=== PATIENT | male | born 1985 | race Caucasian/White ===

== ENCOUNTER 2018-09-01 18:43 | Emergency (ER) | payer OTHER ==
[~2018-09-01] VITALS: Ht 177.8 cm; Wt 81.6 kg
[2018-09-01] MEDS ORDERED: NKM (18:52)
--- NOTE | 2018-09-01 18:55 | NUR ---
ED Nurse Note: patient walked into ED c/o swollen lump around his neck, he reports that he has had body aches for 2 days and that he noticed the lump this morning. Otis CORTEZ by the bedside.
[2018-09-01 19:08] VITALS: BP 115/73
[2018-09-01] MEDS ORDERED: Isovue-300 100ml vial INJ PRN (19:15)
--- NOTE | 2018-09-01 19:20 | Emergency Room Report ---
History of Present Illness General Chief Complaint: General Complaint Source: Patient Present Illness HPI 33-year-old male patient presents the ER complaining of lump on the left side of his neck times 1 day. Reports he noticed a lump earlier today. Reports painful. Reports flulike symptoms during this time. Reports sore throat cough without sputum. Denies hemoptysis. Denies fever, chest pain or shortness of breath. Reports not received flu vaccine this year. Denies history of thyroid problems. Reports history of drug use, states has been clean for 6 months. Denies other aggravating or relieving factors. Allergies: Coded Allergies: No Known Allergies (Unverified , 09/01/18) Patient History Past Medical History: see triage record Reviewed Nursing Documentation: PMH: Agreed; PSxH: Agreed Nursing Documentation-PMH Past Medical History: No Stated History Review of Systems All Other Systems: negative except mentioned in HPI Physical Exam Vital Signs Date Time Temp Pulse Resp B/P (MAP) Pulse Ox O2 Delivery O2 Flow Rate FiO2 09/01/18 18:50 98.6 90 16 115/73 100 Room Air Sp02 EP Interpretation: reviewed, normal General Appearance: well appearing, no apparent distress, alert, GCS 15, non- toxic Head: normocephalic, atraumatic Eyes: bilateral eye normal inspection, bilateral eye PERRL ENT: hearing grossly normal, normal pharynx, no angioedema, normal voice, uvula midline, moist mucus membranes Neck: full range of motion, other - tender mass on the left side of neck near the thyroid, not freely movable, no surrounding erythema or edema, no fluctuance Respiratory: lungs clear, normal breath sounds, no rhonchi, no respiratory distress, no accessory muscle use, no wheezing, speaking full sentences Cardiovascular #1: regular rate, rhythm, no edema Genitourinary: no CVA tenderness Musculoskeletal: back normal, digits/nails normal, gait/station normal, normal range of motion, non-tender Neurologic: alert, oriented x3, responsive, motor strength/tone normal, sensory intact Psychiatric: mood/affect normal Skin: no rash Medical Decision Making PA Attestation Dr. Polanco is my supervising Physician whom patient management has been discussed with. Diagnostic Impression: Primary Impression: Thyroid nodule Additional Impression: Bulla of lung ER Course Pt. presents to the ED c/o lump of the left side of neck. Ddx considered but are not limited to thyroid mass, lymphadenopathy, abscess, influenza. Vital signs: are WNL, pt. is afebrile ER COURSE: CBC unremarkable, mild elevation WBCs without left shift, likely due to pain symptoms. CMP shows kidney function WNL, LFTs not elevated TSH WNL Influenza negative CT soft tissue neck large complex partially calcified left thyroid nodule measuring 3.3 cm. Follow-up with specialist for ultrasound and fine-needle aspiration. Discuss results with the patient. Provided patient with copy of results. Instructed patient to followup with PCP and discuss results of report with patient, discuss need for further treatment and referral. Provided patient with CD of CT results. Discussed patient care with Dr. Polanco who was evaluated patient, will discharge patient home with Keflex to cover for possible infection. Take Tylenol for pain symptoms. DISCHARGE: At this time pt is stable for d/c to home. Patient is resting comfortably, in no acute distress, nontoxic appearing, talking without difficulty. Patient to take medications as instructed Will provide with patient care instructions and any necessary prescriptions. Care plan and follow-up instructions provided. Patient instructed to follow-up with primary care provider in 3 - 5 days. Patient questions asked and answered. Patient reports understanding and agreement to treatment plan. ER precautions given. Patient instructed to return to ER immediately for any new or worsening of symptoms including but not limited to increasing SOB, persistent fever, chest pain, intractable vomiting. - Please note that this Emergency Department Report was dictated using Daiocleat maker technology software, occasionally this can lead to erroneous entry secondary to interpretation by the dictation equipment. Labs Test 09/01/18 19:25 White Blood Count 12.0 K/UL (4.8-10.8) Red Blood Count 5.18 M/UL (4.70-6.10) Hemoglobin 13.8 G/DL (14.2-18.0) Hematocrit 42.3 % (42.0-52.0) Mean Corpuscular Volume 82 FL (80-99) Mean Corpuscular Hemoglobin 26.7 PG (27.0-31.0) Mean Corpuscular Hemoglobin Concent 32.7 G/DL (32.0-36.0) Red Cell Distribution Width 11.3 % (11.6-14.8) Platelet Count 279 K/UL (150-450) Mean Platelet Volume 6.0 FL (6.5-10.1) Neutrophils (%) (Auto) 66.8 % (45.0-75.0) Lymphocytes (%) (Auto) 20.2 % (20.0-45.0) Monocytes (%) (Auto) 11.8 % (1.0-10.0) Eosinophils (%) (Auto) 0.5 % (0.0-3.0) Basophils (%) (Auto) 0.7 % (0.0-2.0) Sodium Level 139 MMOL/L (136-145) Potassium Level 3.8 MMOL/L (3.5-5.1) Chloride Level 101 MMOL/L (98-107) Carbon Dioxide Level 26 MMOL/L (21-32) Anion Gap 12 mmol/L (5-15) Blood Urea Nitrogen 12 mg/dL (7-18) Creatinine 1.0 MG/DL (0.55-1.30) Estimat Glomerular Filtration Rate > 60 mL/min (>60) Glucose Level 97 MG/DL (74-106) Calcium Level 8.9 MG/DL (8.5-10.1) Total Bilirubin 0.4 MG/DL (0.2-1.0) Aspartate Amino Transf (AST/SGOT) 21 U/L (15-37) Alanine Aminotransferase (ALT/SGPT) 45 U/L (12-78) Alkaline Phosphatase 85 U/L (46-116) Total Protein 8.5 G/DL (6.4-8.2) Albumin 3.9 G/DL (3.4-5.0) Globulin 4.6 g/dL Albumin/Globulin Ratio 0.8 (1.0-2.7) Thyroid Stimulating Hormone (TSH) 0.424 uiU/mL (0.358-3.740) CT/MRI/US Diagnostic Results CT/MRI/US Diagnostic Results : Imaging Test Ordered: CT soft tissue neck with contrast Impression Small bulla in the right lung apex. Large complex and partially calcified left thyroid lobe nodule measuring up to 3.3 cm. Further characterization with ultrasound and likely fine-needle aspiration recommended. No significantly enlarged cervical lymph nodes. Last Vital Signs Date Time Temp Pulse Resp B/P (MAP) Pulse Ox O2 Delivery O2 Flow Rate FiO2 09/01/18 19:08 98.6 90 16 115/73 100 Room Air Disposition: HOME, SELF-CARE Condition: Stable Scripts Acetaminophen* (TYLENOL EXTRA STRENGTH*) 500 Mg Tablet 500 MG ORAL Q8H PRN for Prn Headache/Temp > 101, #30 TAB 0 Refills Prov: Chris Demarco 09/01/18 Cephalexin* (KEFLEX*) 500 Mg Capsule 500 MG ORAL EVERY 12 HOURS, #14 CAP 0 Refills Prov: Chris Demarco 09/01/18 Patient Instructions: Thyroid Biopsy, Thyroid Nodule Additional Instructions: Followup with primary care provider in 2-3 days. Discuss referral to ENT/ thyroid specialist. Recommend thyroid ultrasound and fine-needle aspiration. Discussed CT results with primary care provider. Call insurance to find out who primary care provider is if needed. Take medications as directed. Patient questions asked and answered. ER precautions given, patient instructed to return to ER immediately for any new or worsening of symptoms. Chris Demarco Sep 01, 2018 19:20
--- NOTE | 2018-09-01 19:24 | NUR ---
HAND-OFF: Report given to Davian Odom RN.
[2018-09-01 20:12] LABS: BASOPHILS % (AUTO) 0.7 % (0.0-2.0); EOSINOPHILS % (AUTO) 0.5 % (0.0-3.0); HEMATOCRIT 42.3 % (42.0-52.0); HEMOGLOBIN 13.8 G/DL (14.2-18.0); LYMPHOCYTES % (AUTO) 20.2 % (20.0-45.0); MEAN CORPUSCULAR VOLUME 82 FL (80-99); MONOCYTES % (AUTO) 11.8 % (1.0-10.0); NEUTROPHILS % (AUTO) 66.8 % (45.0-75.0); PLATELET COUNT 279 K/UL (150-450); RED BLOOD COUNT 5.18 M/UL (4.70-6.10); RED CELL DISTRIBUTION WIDTH 11.3 % (11.6-14.8)
[2018-09-01 20:23] LABS: ANION GAP 12 mmol/L (5-15); BLOOD UREA NITROGEN 12 mg/dL (7-18); CALCIUM 8.9 MG/DL (8.5-10.1); CARBON DIOXIDE 26 MMOL/L (21-32); CHLORIDE 101 MMOL/L (98-107); POTASSIUM 3.8 MMOL/L (3.5-5.1); SODIUM 139 MMOL/L (136-145)
--- NOTE | 2018-09-01 20:30 | NUR ---
ED Nurse Note: pt went to ct with tech
[2018-09-01 20:35] LABS: ALANINE AMINOTRANSFERASE 45 U/L (12-78); ALBUMIN 3.9 G/DL (3.4-5.0); ALBUMIN/GLOBULIN RATIO 0.8 (1.0-2.7); ALKALINE PHOSPHATASE 85 U/L (46-116); ASPARTATE AMINO TRANSFERASE 21 U/L (15-37); BILIRUBIN,TOTAL 0.4 MG/DL (0.2-1.0)
[2018-09-01] MEDS ORDERED: TYLENOL EXTRA500 MG ORAL (21:20)
[2018-09-01] MEDS ORDERED: CEPHALEXIN500 MG ORAL (21:20)
[2018-09-01 21:52] VITALS: BP 115/73
--- NOTE | 2018-09-01 21:52 | NUR ---
ED Nurse Note: Patient is being discharged from ED alert and oriented x4, ambulatory with a steady gait, VSS. Patient acknowledged the need to follow up with a PMD, Patient was advised to return if symptoms worsen. prescription in hand, ID band removed. pt left the ed with all the belongings.
--- NOTE | 2018-09-02 08:56 | Diagnostic Imaging Report ---
Indication: Pain, lump on the left side of the neck Technique: IV administration nonionic contrast. Spiral acquisitions obtained through the neck. Multiplanar reconstructions were generated. Total dose length product 630.5 mGycm. CTDIvol(s) 19.21 mGy. Dose reduction achieved using automated exposure control Comparison: none Findings: There is a large low-attenuation mass involving the left thyroid lobe. This measures 3.5 cm AP by 2.6 cm transverse by 4 cm craniocaudad. Some rim calcifications are seen inferiorly surrounding either a satellite nodule or lobulation of the primary nodule. Since blood vessels are seen running through the mass. Some calcifications are also seen at the upper pole of the lesion. The right thyroid lobe and isthmus are unremarkable. No other evidence of cervical mass or adenopathy demonstrated. The upper aerodigestive tract is unremarkable. The parapharyngeal spaces are clear, symmetric. The visualized sinuses are clear. The included lung apices demonstrate a small subpleural bleb or bulla on the right. Unremarkable upper mediastinum. Impression: 3.5 x 2.6 x 4 cm left thyroid lobe mass. Appearance is suspicious for necrotic neoplasm. Abscess or complicated thyroid cyst also possible. Further evaluation with ultrasound recommended. This agrees with the preliminary interpretation provided overnight by [facility]. The CT scanner at [facility] is accredited by the [employer] and the scans are performed using protocols designed to limit radiation exposure to as low as reasonably achievable to attain images of sufficient resolution adequate for diagnostic evaluation.
== END 2018-09-01 21:52 | disposition home or self-care (01) ==
LOC: EMR 19:00
DX: E04.1 Nontoxic single thyroid nodule (principal); J43.9 Emphysema, unspecified
CPT/HCPCS: 36415; 70491; 80053; 84443; 85025; 86710; 99284; Q9967

== ENCOUNTER 2020-07-16 15:05 | Emergency (ER) | payer OTHER ==
[~2020-07-16] VITALS: Ht 177.8 cm; Wt 72.6 kg
[~2020-07-16 15:05] MED LIST: CEPHALEXIN500 MG ORAL; NKM; TYLENOL EXTRA500 MG ORAL
[2020-07-16] MEDS ORDERED: Tetanus/Diptheria/Pertussis IM ONE (15:30)
[2020-07-16 15:41] VITALS: BP 128/67
[2020-07-16] MEDS ORDERED: Cephalexin 500mg cap ORAL ONE (15:45)
[2020-07-16] MEDS ORDERED: Bactrim-DS 1 tab ORAL ONE (15:45)
--- NOTE | 2020-07-16 15:49 | Emergency Room Report ---
History of Present Illness General Chief Complaint: Skin Rash/Abscess Source: Patient Present Illness HPI 35-year-old male presents to the emergency department complaining of 7 out of 10 severity pain, swelling, erythema and tenderness to the bilateral hands x2 days. Patient reports status post IV drug use. Patient reports he was injecting heroin 2 days ago. Patient reports history of hep C. He denies fevers or chills. He states he is not sure when his last tetanus vaccine was. He reports he is right-hand dominant. He denies trauma or fall. No other aggravating or relieving factors at this time. Allergies: Coded Allergies: No Known Allergies (Unverified , 09/01/18) COVID-19 Screening Contact w/high risk pt: No Experienced COVID-19 symptoms?: No COVID-19 Testing performed EMPLOYMENT DIRECTOR: No Patient History Past Medical History: see triage record Past Surgical History: none Pertinent Family History: none Reviewed Nursing Documentation: PMH: Agreed; PSxH: Agreed Review of Systems All Other Systems: negative except mentioned in HPI Physical Exam Vital Signs Date Time Temp Pulse Resp B/P (MAP) Pulse Ox O2 Delivery O2 Flow Rate FiO2 07/16/20 15:14 97.2 86 16 128/67 (87) 99 Room Air Sp02 EP Interpretation: reviewed, normal General Appearance: no apparent distress, alert, GCS 15, non-toxic Head: normocephalic, atraumatic Eyes: bilateral eye normal inspection, bilateral eye PERRL ENT: hearing grossly normal, normal voice Neck: full range of motion Respiratory: chest non-tender, lungs clear, normal breath sounds, speaking full sentences Cardiovascular #1: regular rate, rhythm, no edema Cardiovascular #2: 2+ radial (R), 2+ radial (L) Musculoskeletal: normal range of motion, gait/station normal, non-tender Neurologic: alert, motor strength/tone normal, oriented x3, sensory intact, responsive, speech normal Psychiatric: judgement/insight normal Skin: other - Diffuse erythema, warmth and swelling to the soft tissue of the dorsum of the hands bilaterally. No localized palpable fluctuance or area of induration. No blisters or vesicles. NVI. Medical Decision Making PA Attestation Dr. Bishop is my supervising Physician whom patient management has been discussed with. Diagnostic Impression: Primary Impression: Cellulitis Qualified Codes: L03.119 - Cellulitis of unspecified part of limb ER Course 35-year-old male presents to the emergency department complaining of 7 out of 10 severity pain, swelling, erythema and tenderness to the bilateral hands x2 days. Patient reports status post IV drug use. Patient reports he was injecting heroin 2 days ago. Patient reports history of hep C. He denies fevers or chills. He states he is not sure when his last tetanus vaccine was. He reports he is right-hand dominant. He denies trauma or fall. No other aggravating or relieving factors at this time. Ddx considered but are not limited to cellulitis, Necrotizing fasciitis, allergic reaction, burn, dermatitis, fracture, d/L, gout, abscess, phlebitis. Vital signs: are WNL, pt. is afebrile H&PE are most consistent with soft tissue cellulitis to the bilateral hands most likely secondary to IV drug use. No areas that clinically would require incisio n and drainage. Patient is nontoxic in appearance in no acute distress. ORDERS: none required at this time, the diagnosis is clinical ED INTERVENTIONS: - Tdap -Keflex PO -Bactrim DS PO - Motrin PO DISCHARGE: At this time pt. is stable for d/c to home. Will provide printed patient care instructions, and any necessary prescriptions. Care plan and follow up instructions have been discussed with the patient prior to discharge. Last Vital Signs Date Time Temp Pulse Resp B/P (MAP) Pulse Ox O2 Delivery O2 Flow Rate FiO2 07/16/20 15:41 97.2 16 128/67 99 Room Air 07/16/20 15:14 86 Status: improved Disposition: HOME, SELF-CARE Condition: Stable Referrals: [facility] Patient Instructions: Cellulitis Additional Instructions: Take medications as directed. Follow up with a Primary Care Provider in 3-5 days, even if your symptoms have resolved. --Please review list of primary care clinics, if you do not already have a primary care provider Return sooner to ED if new symptoms occur, or current symptoms become worse. - Please note that this Emergency Department Report was dictated using [employer] Energytrib[employer] judge technology software, occasionally this can lead to erroneous entry secondary to interpretation by the dictation equipment. Lynda Tinajero Jul 16, 2020 15:49
[2020-07-16] MEDS ORDERED: IBUPROFEN600 M1 ORAL (16:25)
[2020-07-16] MEDS ORDERED: BACTRIM DS TAB1 EAC1 ORAL (16:25)
[2020-07-16] MEDS ORDERED: CEPHALEXIN500 MG ORAL (16:25)
== END 2020-07-16 16:32 | disposition home or self-care (01) ==
LOC: EMR 15:30
DX: L03.114 Cellulitis of left upper limb (principal); L03.113 Cellulitis of right upper limb; Z23 Encounter for immunization
CPT/HCPCS: 90471; 90715; Z7502; 99282

== ENCOUNTER 2020-07-20 10:58 | Emergency (ER) | payer OTHER ==
[~2020-07-20] VITALS: Ht 177.8 cm; Wt 72.6 kg
[~2020-07-20 10:58] MED LIST changes: +BACTRIM DS TAB1 EAC1 ORAL; +IBUPROFEN600 M1 ORAL
--- NOTE | 2020-07-20 11:06 | NUR ---
ED Nurse Note: pt ambulated to ed c/o right hand cellulitis worsening x 1-2 days after being seen at [place] on the 16 of july. right hand appears swollen, red, and unkept. Pt reports he is still taking the antibiotics prescribed at his last visit. "my hand feels like its going to pop everytime I move it"
[2020-07-20 11:08] VITALS: BP 120/78
[2020-07-20] MEDS ORDERED: Lidocaine 1% Plain 30 ml INJ ONE ×2 (11:12→11:15)
--- NOTE | 2020-07-20 11:14 | NUR ---
ED Nurse Note: ERMD at bedside
[2020-07-20] MEDS ORDERED: BACITRACIN15 GM TOPIC (11:21)
--- NOTE | 2020-07-20 11:28 | Emergency Room Report ---
History of Present Illness General Chief Complaint: Skin Rash/Abscess Source: Patient Present Illness HPI Disclaimer: Please note that this report is being documented using DRAGON technology. This can lead to erroneous entry secondary to incorrect interpretation by the dictating instrument. HPI: 35-year-old [id number] male presents for evaluation of skin abscess. Patient states he injects heroin into his hands arms and neck. He was treated at this emergency department for hand cellulitis several days ago and started on Keflex and Bactrim. He has been compliant with medication. He states the spot over the dorsum of the right hand has been increasingly sore and swollen. He noted a pustule head on it developed this morning. No drainage, no bleeding. He denies recent injection into that area and cannot recall an instance in which the needle broke off. Tetanus is up-to-date. Full range of motion in the hand. Denies numbness or tingling. Denies fever or chills. Recently completed detox program but relapsed. PMH: IV drug abuse, cellulitis, abscess PSH: Reviewed Allergies: Reviewed Social Hx: IV drug abuse Allergies: Coded Allergies: No Known Allergies (Unverified , 09/01/18) COVID-19 Screening Contact w/high risk pt: No Experienced COVID-19 symptoms?: No COVID-19 Testing performed STITCHER STANDARD MACHINE: No Nursing Documentation-PMH Past Medical History: No History, Except For Review of Systems All Other Systems: negative except mentioned in HPI Physical Exam Vital Signs Date Time Temp Pulse Resp B/P (MAP) Pulse Ox O2 Delivery O2 Flow Rate FiO2 07/20/20 11:01 98.2 85 15 120/78 (92) 95 Room Air General: Awake and alert, no acute distress HEENT: NC/AT. EOMI. Resp: Normal work of breathing Skin: There is a 2 x 2 edematous erythematous and tender fluctuant region over the dorsum of the fifth metacarpal just proximal to the PIPJ. No bleeding or spontaneous drainage. MSK: Normal tone and bulk. Moving all extremities. No obvious deformity. Able to flex and extend all digits. Neuro: Awake and alert. Mentating appropriately Procedures Incision and Drainage Incision and Drainage : Consent: Verbal Site: Right hand Blade Size: 11 I & D Procedure: betadine prep, sterile drapes applied, sterile dressing applied Wound Location: upper extremity Wound's Depth, Shape: superficial, linear Wound Length (cm): 1 Wound Explored: Purulent material expressed Irrigated w/ Saline (ccs): 100 Anesthesia: 1% Lidocaine Volume Anesthetic (ccs): 5 Splint Applied?: Yes Patient Tolerated: Well Complications: None Medical Decision Making Diagnostic Impression: Primary Impression: Abscess ER Course 35-year-old male presents with abscess to the right hand. Bedside ultrasound performed by me shows a fluid collection just below the skin surface. No obvious spread to the deep tissue. Patient has full range of motion in the hands and is neurologically intact. Incision and drainage performed with removal of purulent material. See separate procedure section of this note for full details. Tolerated well. Bacitracin and sterile bandage applied. He will continue his antibiotics that he was started on a few days ago. Tetanus was updated on last visit. Otherwise well-appearing stable for outpatient follow-up. Instructed to return with new or worsening symptoms. Last Vital Signs Date Time Temp Pulse Resp B/P (MAP) Pulse Ox O2 Delivery O2 Flow Rate FiO2 07/20/20 11:08 98.2 85 15 120/78 95 Room Air Disposition: HOME, SELF-CARE Condition: Stable Scripts Bacitracin (Bacitracin) 28.4 Gm Oint...g. 1 APPLIC TOPIC THREE TIMES A DAY for 5 Days, #28.4 GM Prov: Domingo Nair MD 07/20/20 Referrals: [facility] Patient Instructions: Abscess Additional Instructions: Continue the current antibiotic medications you are taking for cellulitis. Please follow-up with your primary care doctor in the next 1 to 3 days to discuss this emergency department visit and for reevaluation. If you have any new or worsening symptoms please return to the emergency department for reevaluation. Please note that this report is being documented using [employer] technology. This can lead to erroneous entry secondary to incorrect interpretation by the dictating instrument. Domingo Nair MD Jul 20, 2020 11:28
[2020-07-20] MEDS ORDERED: Bacitracin Oint UD TOPIC ONE (11:30)
--- NOTE | 2020-07-20 11:31 | NUR ---
ER DISCHARGE NOTE: Patient is cleared to be discharged per ERMD, pt is aox4, on room air, with stable vital signs. pt was given dc and prescription instructions, pt was able to verbalize understanding, pt id band. pt is able to ambulate with steady gait. pt took all belongings. placed bacitracin and bandage at site of of incision per ermd order. pt went home
[2020-07-20 11:32] VITALS: BP 117/84
== END 2020-07-20 11:31 | disposition home or self-care (01) ==
LOC: EMR 11:15
DX: L02.511 Cutaneous abscess of right hand (principal); F11.20 Opioid dependence, uncomplicated
CPT/HCPCS: 10060; J2001; Z7502; 99282